=== PATIENT | male | born 1960 | race Caucasian/White ===

== ENCOUNTER 2019-09-28 15:49 | Emergency (ER) | payer OTHER ==
[2019-09-28] MEDS ORDERED: XYLOCAINE 1% HCL 20 ML MDV ONE ×2 (16:42→17:47)
--- NOTE | 2019-09-28 17:02 | ERPHSYRPT ---
- History of Present Illness Time Seen by Provider: 09/28/19 16:00 Source: patient Exam Limitations: no limitations Patient Subjective Stated Complaint: Pt was woring with a table saw and cut his left ring finger and the distal end of finger and cut proximally Triage Nursing Assessment: Pt came to the ER for a laceration to his left ring finger, Approx a 2 cm laceration with minimal bleeding, rates pain 5/10, vitals wnl, pulses normal, doesn't appear to be in any distress Physician History: Patient is a 59-year-old male who was working with a table saw suffered a laceration to the distal phalanx of his left ring finger. The laceration ran along the ulnar margin of the nail. He did have preserved motion and denies any numbness. Occurred just prior to his arrival. Occurred: just prior to arrival Method of Injury: incised Quality: throbbing Severity of Pain-Max: moderate Severity of Pain-Current: moderate Extremities Pain Location: 4th finger: left Modifying Factors: Improves With: nothing Allergies/Adverse Reactions: No Known Drug Allergies Allergy (Verified 09/28/19 15:55) Home Medications: Carbamazepine 200 mg [Tegretol 200 MG] 200 mg PO TID 09/28/19 [History] Gabapentin 300 mg PO TID 09/28/19 [History] Hx Tetanus, Diphtheria Vaccination/Date Given: No Hx Influenza Vaccination/Date Given: No Hx Pneumococcal Vaccination/Date Given: No Travel Risk - International Travel Have you traveled outside of the country in past 3 weeks: No Have you or anyone close to you been diagnosed with or: No Do your reside in a community with a known COVID-19 case?: Yes If Yes where:: [facility] - Coronavirus Screening Has patient experienced Coronavirus symptoms: No - Review of Systems Constitutional: No Fever, No Chills Eyes: No Symptoms Ears, Nose, & Throat: No Symptoms Respiratory: No Cough, No Dyspnea Cardiac: No Chest Pain, No Edema, No Syncope Abdominal/Gastrointestinal: No Abdominal Pain, No Nausea, No Vomiting, No Diarrhea Genitourinary Symptoms: No Dysuria Musculoskeletal: No Back Pain, No Neck Pain Skin: No Rash Neurological: No Dizziness, No Focal Weakness, No Sensory Changes Psychological: No Symptoms Endocrine: No Symptoms All Other Systems: Reviewed and Negative - Past Medical History Pertinent Past Medical History: Yes Neurological History: Peripheral Neuropathy ENT History: No Pertinent History Cardiac History: No Pertinent History Respiratory History: No Pertinent History Endocrine Medical History: No Pertinent History Musculoskeletal History: No Pertinent History GI Medical History: No Pertinent History History: No Pertinent History Psycho-Social History: No Pertinent History Male Reproductive Disorders: No Pertinent History - Past Surgical History Past Surgical History: Yes Neuro Surgical History: Neurological Surgery Cardiac: No Pertinent History Gastrointestinal: Appendectomy, Hernia Repair Genitourinary: No Pertinent History Musculoskeletal: No Pertinent History Male Surgical History: No Pertinent History Other Surgical History: cochlear implant, 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 - Social History Smoking Status: Current every day smoker How long have you smoked: YEARS Exposure to second hand smoke: Yes Drug Use: none Patient Lives Alone: No - Nursing Vital Signs Nursing Vital Signs: Initial Vital Signs Temperature 98.0 F 09/28/19 15:58 Pulse Rate 66 09/28/19 15:58 Blood Pressure 134/76 09/28/19 15:58 O2 Sat by Pulse Oximetry 98 09/28/19 15:58 Pain Scale Pain Intensity 0 - Physical Exam General Appearance: mild distress, alert Eyes, Ears, Nose, Throat Exam: moist mucous membranes Neck Exam: non-tender, supple Cardiovascular/Respiratory Exam: chest non-tender, normal breath sounds, regular rate/rhythm, no respiratory distress Abdominal Exam: non-tender, No guarding Back Exam: normal inspection, No vertebral tenderness Hand Exam: normal ROM, laceration (Fourth finger distal phalanx ulnar aspect a longitudinal laceration along the ulnar side of the nailbed 2.6 cm in length flap type laceration) Neuro/Tendon Exam: normal sensation, normal motor functions Mental Status Exam: alert, oriented x 3, cooperative Skin Exam: normal color, warm, dry SpO2: 98 Procedures - Laceration/Wound Repair Left Medial Distal Finger Wound Location: Left, hand (Ring finger distal phalanx ulnar aspect of the nailbed) Wound Length (cm): 2.6 Wound's Depth, Shape: linear, flap Wound Explored: no foreign body noted Irrigated: Yes Hibiclens Prep: Yes Anesthesia: 1% Lidocaine Volume Anesthetic (ccs): 10 Wound Debrided: minimal Wound Repaired With: sutures Suture Size/Type: 6-0, nylon Number of Sutures: 5 Layer Closure?: No Sterile Dressing Applied?: Yes Splint Applied?: No Sling Applied?: No - Course Nursing assessment & vital signs reviewed: Yes - Radiology Exams Left Hand X-ray Interpretation: Interpreted by me, Other (Right show a very tiny fracture of the distal tuft of the distal phalanx of the left middle finger) Ordered Tests: Active Orders 24 hr Category Date Time Status HAND (MINIMUM 3 VIEWS) Stat Exams 09/28/19 15:56 Taken Medication Summary Discontinued Medications Generic Name Dose Route Start Last Admin Trade Name Freq PRN Reason Stop Dose Admin Lidocaine HCl Confirm 09/28/19 16:42 Xylocaine 1% Hcl 20 Ml Mdv Administered 09/28/19 16:43 Dose 1 ml .ROUTE .[employer]-MED ONE - Progress Progress: improved - Departure Departure Disposition: Home Clinical Impression: Laceration of finger of left hand Condition: Stable Critical Care Time: No Referrals: MERE CRENSHAW [Primary Care Provider] - Instructions: Wound Care (DC), Laceration Repair With Stitches (DC) Prescriptions: Hydrocodone/APAP 5-325 Tab^^^ [[place] 5-325 Tablet^^^] 1 tab PO Q6HPRN PRN #10 tablet MDD 6 PRN Reason: Pain Cephalexin Mh 500 mg [Keflex 500 mg] 500 mg PO TID #30 capsule
[2019-09-28] MEDS ORDERED: Norco 10/325 MG Tablet PO ONE (17:07)
[2019-09-28] MEDS ORDERED: Norco 10/325 MG Tablet ONE (17:15)
[2019-09-28 17:40] VITALS: BP 118/76; PULSE 86; O2SAT 100
[2019-09-28] MEDS ORDERED: LIDOCAINE HCL 1% 50 MG/5 ML VL PF IJ STA (17:47)
--- NOTE | 2019-09-28 21:38 | XRAY ---
Indication: 4th finger laceration with saw. Comparison: None 3 view left hand demonstrates tiny laceration tip 4th finger with tiny punctate tuft fracture ulnar aspect. No other bony, articular, or soft tissue abnormalities.
== END 2019-09-28 17:41 | disposition home or self-care (01) ==
LOC: ED 15:49
DX: S61.215A Laceration without foreign body of left ring finger without damage to nail, initial encounter (principal); W29.8XXA Contact with other powered hand tools and household machinery, initial encounter; Y93.89 Activity, other specified; Y92.9 Unspecified place or not applicable
CPT/HCPCS: 12002; 73130; 96372; 99283; J2001; A9270-GY

== ENCOUNTER 2022-07-07 10:12 | Emergency (ER) | payer BC, OTHER ==
[2022-07-07] MEDS ORDERED: Zofran 4 MG/2 ML VIAL IV ONE (11:18)
[2022-07-07] MEDS ORDERED: MORPHINE SULFATE 2 MG INJ IV ONE (11:18)
[2022-07-07] MEDS ORDERED: PROTONIX 40 MG IV IV ONE ×2 (11:18→12:08)
--- NOTE | 2022-07-07 11:23 | ERPHSYRPT ---
- History of Present Illness Time Seen by Provider: 07/07/22 11:24 Source: patient Exam Limitations: no limitations Patient Subjective Stated Complaint: pt here for chronic nausea for almost a year now, he aslo states he has had pain to left chest for months now, was recen tly placed on prozac for depression, states he is under a lot of stress Triage Nursing Assessment: pt alert, resp easy, skin w/d/p. face mask in place, abd soft, no edema notd Physician History: Patient is a 62-year-old male presents to our emergency department for evaluation of left-sided chest pain. Chest pain has been ongoing for approximately 2 to 3 months. Patient also experiencing nausea which is worse after eating. Patient had upper GI performed at [facility] in April. However he does not know the results. Patient followed up with his primary care doctor regarding the nausea. He was advised that it was likely due to a gastritis. Patient states he is under significant stress as he is reportedly going through a divorce. Patient reports that his primary care physician felt that the gastritis is likely due to stress. Patient was prescribed Prozac for depression as a means to control his stress and anxiety. This would possibly thereby decrease the gastritis. No active chest pain. Pain localized no radiation. No associated trauma no fever no shortness of breath. Symptoms are moderate in intensity. Eating increases the nausea but does not affect the chest pain. Patient voices no other complaints or concerns at this time. Portions of this note were created with voice recognition technology. There may be grammatical, spelling, punctuation or sound alike errors Timing/Duration: other (Symptoms ongoing for several months. Patient states he cannot tolerate it any longer.) Severity: moderate Modifying Factors: Improves With: other (Eating causes nausea) Associated Symptoms: nausea, No vomiting Allergies/Adverse Reactions: No Known Drug Allergies Allergy (Verified 07/07/22 10:36) Home Medications: Carbamazepine 200 mg [Tegretol 200 MG] 200 mg PO TID 09/28/19 [History] Gabapentin 300 mg PO TID 09/28/19 [History] Fluoxetine HCl 20 mg [Prozac 20 MG] 20 mg PO DAILY 07/07/22 [History] Hx Tetanus, Diphtheria Vaccination/Date Given: No Hx Influenza Vaccination/Date Given: No Hx Pneumococcal Vaccination/Date Given: No Immunizations Up to Date: Yes Travel Risk - International Travel Have you traveled outside of the country in past 3 weeks: No - Coronavirus Screening Are you exhibiting any of the following symptoms?: No Close contact with a COVID-19 positive Pt in past 14-21 Days: No - Vaccine Status Have you recieved a Covid-19 vaccination: No - Review of Systems Constitutional: No Symptoms, No Fever, No Chills Eyes: No Symptoms Ears, Nose, & Throat: No Symptoms Respiratory: No Symptoms, No Cough, No Dyspnea Cardiac: No Symptoms, No Chest Pain, No Edema, No Syncope Abdominal/Gastrointestinal: No Symptoms, No Abdominal Pain, No Nausea, No Vomiting, No Diarrhea Genitourinary Symptoms: No Symptoms, No Dysuria Musculoskeletal: No Symptoms, No Back Pain, No Neck Pain Skin: No Symptoms, No Rash Neurological: No Symptoms, No Dizziness, No Focal Weakness, No Sensory Changes Psychological: No Symptoms Endocrine: No Symptoms Hematologic/Lymphatic: No Symptoms Immunological/Allergic: No Symptoms All Other Systems: Reviewed and Negative - Past Medical History Pertinent Past Medical History: Yes Neurological History: Peripheral Neuropathy ENT History: No Pertinent History Cardiac History: No Pertinent History Respiratory History: No Pertinent History Endocrine Medical History: No Pertinent History Musculoskeletal History: No Pertinent History GI Medical History: No Pertinent History History: No Pertinent History Psycho-Social History: No Pertinent History Male Reproductive Disorders: No Pertinent History - Past Surgical History Past Surgical History: Yes Neuro Surgical History: Neurological Surgery Cardiac: No Pertinent History Gastrointestinal: Appendectomy, Hernia Repair Genitourinary: No Pertinent History Musculoskeletal: No Pertinent History Male Surgical History: No Pertinent History Other Surgical History: cochlear implant, 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 - Social History Smoking Status: Current every day smoker How long have you smoked: YEARS Exposure to second hand smoke: Yes Drug Use: none Patient Lives Alone: No - Nursing Vital Signs Nursing Vital Signs: Initial Vital Signs Temperature 97.0 F 07/07/22 11:00 Pulse Rate 61 07/07/22 11:00 Respiratory Rate 18 07/07/22 11:00 Blood Pressure 175/109 07/07/22 11:00 Pain Scale Pain Intensity 5 - Physical Exam General Appearance: no apparent distress, alert Eye Exam: PERRL/EOMI, eyes nml inspection Ears, Nose, Throat Exam: normal ENT inspection, TMs normal, pharynx normal, moist mucous membranes Neck Exam: normal inspection, non-tender, supple, full range of motion Respiratory Exam: normal breath sounds, lungs clear, airway intact, No respiratory distress Cardiovascular Exam: regular rate/rhythm, normal heart sounds, normal peripheral pulses Gastrointestinal/Abdomen Exam: soft, normal bowel sounds, other (Right upper quadrant tenderness.), No tenderness, No mass Back Exam: normal inspection, normal range of motion, No CVA tenderness, No vertebral tenderness Extremity Exam: normal inspection, normal range of motion, pelvis stable Neurologic Exam: alert, oriented x 3, cooperative, normal mood/affect, nml cerebellar function, nml station & gait, sensation nml, No motor deficits Skin Exam: normal color, warm, dry, No rash Lymphatic Exam: No adenopathy SpO2 Interpretation: normal SpO2: 96 O2 Delivery: Room Air - Course Nursing assessment & vital signs reviewed: Yes EKG Interpreted by Me: RATE, Sinus Rhythm, NORMAL AXIS, NORMAL INTERVALS (Left ventricular hypertrophy) - CT Exams Abdomen/Pelvis CT Interpretation: Tele-radiologist Report (Lung nodule, 3 mm calcified granuloma, 3.3 cm left renal exophytic cyst. Aortoiliac calcification, lumbar spine arthritis. Remote L2 endplate fracture with 25% height loss) - Radiology Ultrasound Exam Gallbladder Ultrasound: tele radiology report (Multiple centimeter and subcentimeter gal lstones. Borderline gallbladder wall thickening at 2.6 mm. No pericholecystic fluid. CBD measures 5.6 mm) Ordered Tests: Active Orders 24 hr Category Date Time Status EKG-ER Only STAT Care 07/07/22 11:18 Active IV Insertion STAT Care 07/07/22 11:18 Active ABDOMEN AND PELVIS W/0 CONTRAS [CT] Stat Exams 07/07/22 11:18 Completed GALLBLADDER [US] Stat Exams 07/07/22 11:49 Completed CBC W DIFF Stat Lab 07/07/22 11:20 Completed CMP Stat Lab 07/07/22 11:20 Completed LIPASE Stat Lab 07/07/22 11:20 Completed Lactic Acid Stat Lab 07/07/22 11:18 Completed TROPONIN Q4H Lab 07/07/22 11:20 Completed TROPONIN Q4H Lab 07/07/22 15:10 Completed TROPONIN Q4H Lab 07/07/22 19:30 Ordered UA W/RFX UR CULTURE Stat Lab 07/07/22 13:49 Completed Medication Summary Generic Name Dose Route Start Last Admin Trade Name Freq PRN Reason Stop Dose Admin Sodium Chloride 1,000 mls @ 100 mls/hr 07/07/22 11:30 07/07/22 12:11 Sodium Chloride 0.9% 1000 Ml IV 08/06/22 11:29 100 mls/hr .Q10H ABDIAS Administration Discontinued Medications Generic Name Dose Route Start Last Admin Trade Name Maria Alejandra PRN Reason Stop Dose Admin Morphine Sulfate 2 mg 07/07/22 11:18 07/07/22 12:11 Morphine Sulfate 2 Mg/Ml Inj IV 07/07/22 11:19 2 mg STAT ONE Administration Morphine Sulfate Confirm 07/07/22 12:08 Morphine Sulfate 2 Mg/Ml Inj Administered 07/07/22 12:09 Dose 2 mg .ROUTE .STK-MED ONE Ondansetron HCl 4 mg 07/07/22 11:18 07/07/22 12:11 Ondansetron Hcl 4 Mg/2 Ml Vial IV 07/07/22 11:19 4 mg STAT ONE Administration Ondansetron HCl Confirm 07/07/22 12:08 Ondansetron Hcl 4 Mg/2 Ml Vial Administered 07/07/22 12:09 Dose 4 mg .ROUTE .STK-MED ONE Pantoprazole Sodium 40 mg 07/07/22 11:18 07/07/22 12:11 Pantoprazole 40 Mg Vial IV 07/07/22 11:19 40 mg STAT ONE Administration Pantoprazole Sodium Confirm 07/07/22 12:08 Pantoprazole 40 Mg Vial Administered 07/07/22 12:09 Dose 40 mg IV .STK-MED ONE Lab/Rad Data: Laboratory Result Diagrams 07/07/22 11:20 07/07/22 11:20 Laboratory Results 07/07/22 07/07/22 07/07/22 Range/Units 15:10 13:49 11:20 WBC (4.0-10.5) x10^3/uL RBC (4.1-5.6) x10^6/uL Hgb (12.5-18.0) g/dL Hct (42-50) % MCV (78-100) fL MCH (26-32) pg MCHC (32-36) g/dL RDW (11.5-14.0) % Plt Count (150-450) x10^3/uL MPV (7.5-11.0) fL Gran % (36.0-66.0) % Immature Gran % (Auto) (0.00-0.4) % Nucleat RBC Rel Count (0.00-0.1) % Eos # (Auto) (0-0.5) x10^3/uL Immature Gran # (Auto) (0.00-0.03) x10^3u/L Absolute Lymphs (auto) (1.0-4.6) x10^3/uL Absolute Monos (auto) (0.0-1.3) x10^3/uL Absolute Nucleated RBC (0.00-0.01) x10^3u/L Lymphocytes % (24.0-44.0) % Monocytes % (0.0-12.0) % Eosinophils % (0.00-5.0) % Basophils % (0.0-0.4) % Absolute Granulocytes (1.4-6.9) x10^3/uL Basophils # (0-0.4) x10^3/uL Sodium (137-145) mmol/L Potassium (3.5-5.1) mmol/L Chloride (98-107) mmol/L Carbon Dioxide (22-30) mmol/L Anion Gap (5-15) MEQ/L BUN (9-20) mg/dL Creatinine (0.66-1.25) mg/dL Estimated GFR ML/MIN Glucose (74-106) mg/dL Lactic Acid (0.4-2.0) Calcium (8.4-10.2) mg/dL Total Bilirubin (0.2-1.3) mg/dL AST (17-59) U/L ALT (0-50) U/L Alkaline Phosphatase (38-126) U/L Troponin I < 0.012 < 0.012 (0.000-0.034) ng/mL Serum Total Protein (6.3-8.2) g/dL Albumin (3.5-5.0) g/dL Lipase (23-300) U/L Urine Color Yellow (Yellow) Urine Appearance Clear (Clear) Urine pH 7.5 (4.6-8.0) Ur Specific [place] 1.015 (1.005-1.030) Urine Protein Negative (Negative) Urine Glucose (UA) Negative (Negative) mg/dL Urine Ketones Trace A (Negative) Urine Blood Negative (Negative) Urine Nitrite Negative (Negative) Urine Bilirubin Negative (Negative) Urine Urobilinogen 1.0 A (0.2) mg/dL Ur Leukocyte Esterase Negative (Negative) U Hyaline Cast (Auto) NONE SEEN (0-2) /LPF Urine Microscopic RBC 3-5 (0-5) /HPF Urine Microscopic WBC 0-2 (0-5) /HPF Ur Epithelial Cells None Seen (None Seen) /HPF Urine Bacteria None Seen (None Seen) /HPF Urine Culture Reflexed NO (NO) 07/07/22 07/07/22 07/07/22 Range/Units 11:20 11:20 11:18 WBC 8.6 (4.0-10.5) x10^3/uL RBC 4.83 (4.1-5.6) x10^6/uL Hgb 14.7 (12.5-18.0) g/dL Hct 40.7 L (42-50) % MCV 84.3 (78-100) fL MCH 30.4 (26-32) pg MCHC 36.1 H (32-36) g/dL RDW 11.8 (11.5-14.0) % Plt Count 236 (150-450) x10^3/uL MPV 8.7 (7.5-11.0) fL Gran % 80.4 H (36.0-66.0) % Immature Gran % (Auto) 0.3 (0.00-0.4) % Nucleat RBC Rel Count 0.0 (0.00-0.1) % Eos # (Auto) 0.07 (0-0.5) x10^3/uL Immature Gran # (Auto) 0.03 (0.00-0.03) x10^3u/L Absolute Lymphs (auto) 1.07 (1.0-4.6) x10^3/uL Absolute Monos (auto) 0.50 (0.0-1.3) x10^3/uL Absolute Nucleated RBC 0.00 (0.00-0.01) x10^3u/L Lymphocytes % 12.4 L (24.0-44.0) % Monocytes % 5.8 (0.0-12.0) % Eosinophils % 0.8 (0.00-5.0) % Basophils % 0.3 (0.0-0.4) % Absolute Granulocytes 6.90 (1.4-6.9) x10^3/uL Basophils # 0.03 (0-0.4) x10^3/uL Sodium 127 L (137-145) mmol/L Potassium 4.1 (3.5-5.1) mmol/L Chloride 95 L (98-107) mmol/L Carbon Dioxide 24 (22-30) mmol/L Anion Gap 12.0 (5-15) MEQ/L BUN 5 L (9-20) mg/dL Creatinine 0.66 (0.66-1.25) mg/dL Estimated GFR > 60.0 ML/MIN Glucose 107 H (74-106) mg/dL Lactic Acid 0.8 (0.4-2.0) Calcium 8.7 (8.4-10.2) mg/dL Total Bilirubin 0.50 (0.2-1.3) mg/dL AST 31 (17-59) U/L ALT 15 (0-50) U/L Alkaline Phosphatase 84 (38-126) U/L Troponin I (0.000-0.034) ng/mL Serum Total Protein 7.3 (6.3-8.2) g/dL Albumin 4.4 (3.5-5.0) g/dL Lipase 64 (23-300) U/L Urine Color (Yellow) Urine Appearance (Clear) Urine pH (4.6-8.0) Ur Specific [place] (1.005-1.030) Urine Protein (Negative) Urine Glucose (UA) (Negative) mg/dL Urine Ketones (Negative) Urine Blood (Negative) Urine Nitrite (Negative) Urine Bilirubin (Negative) Urine Urobilinogen (0.2) mg/dL Ur Leukocyte Esterase (Negative) U Hyaline Cast (Auto) (0-2) /LPF Urine Microscopic RBC (0-5) /HPF Urine Microscopic WBC (0-5) /HPF Ur Epithelial Cells (None Seen) /HPF Urine Bacteria (None Seen) /HPF Urine Culture Reflexed (NO) - Progress Progress: improved Progress Note: Outside hospital reports of upper GI and colonoscopy were obtained from [facility]. I personally reviewed the reports. The purpose of obtaining the reports was to find an etiology for patient's ongoing and progressive nausea. Report reveals inactive gastritis. Patient had polyps observed on his col onoscopy which were sampled. I do not have reports of final pathology report. 07/07/22 14:34 Patient reassessed. He is well. Patient has no complaints. No chest pain or shortness of breath. Slight nausea however this has been ongoing for several months. Will discharge patient home patient requesting discharge. He states he will follow-up at the [facility]. Patient's heart score was calculated. Heart score is 2 which is low risk for major adverse coronary event. I discussed this case with Dr. Green who agrees with disposition. Patient 62-year-old male presents to our ED with a 1 year history of nausea and a 3-month history of left-sided chest pain. Patient's presenting symptoms are c hronic. Complexity of complaint is moderate. No significant comorbidities to contribute to patient's symptomology. Patient has no history of hypertension hyperlipidemia diabetes. However patient is a smoker. No significant family history of VT or stroke. Testing ordered including EKG. Dr. Graham personally reviewed the EKG. CT abdomen pelvis which shows no acute findings. Right upper quadrant ultrasound. Findings include cholelithiasis. No cholecystitis. CBC CMP lipase lactic acid troponin urinalysis. Results of testing was used for medical decision making. . Patient received morphine for pain. Patient received pantoprazole for pain as well. Zofran for nausea and sodium chloride normal saline administered due to decreased p.o. Patient feels much better. No active pain. Pay states he is ready for discharge. He will follow-up with the [facility] tomorrow morning. Patient v oices no other complaints or concerns at this time. Level VM service provided was moderate. Complexity of problems addressed moderate. Complexity of data reviewed and analyzed is moderate. Risk of complication and/or risk of morbidity/mortality of patient management was moderate. No critical care time. Patient served as an independent historian. Time spent for discharge approximately 15 minutes. Portions of this note were created with voice recognition technology. There may be grammatical, spelling, punctuation or sound alike errors 07/07/22 16:30 07/07/22 16:40 Counseled pt/family regarding: lab results, diagnosis, rad results - Departure Departure Disposition: Home Clinical Impression: Nausea, Cholelithiasis, Hyponatremia, Lung nodule, Exophytic renal cyst, Aortoiliac calcification, Arthritis of lumbar spine, Remote L2 endplate fracture Condition: Stable Critical Care Time: No Referrals: MERE CRENSHAW [ACTIVE STAFF] - Follow up/PCP as directed Instructions: Nausea and Vomiting, Adult (DC) Additional Instructions: You will require follow-up for a lung nodule incidentally observed on today's CAT scan Discharge/Care Plan MAUROADIS was seen on 07/07/22 in the Emergency Room. The patient was counseled regarding Diagnosis,Lab results, Imaging studies, need for follow up and when to return to the Emergency Room. Prescriptions given: Discharge Note I have spoken with the patient and/or caregivers. I have explained the patient's condition, diagnosis and treatment plan based on the information available to me at this time. I have answered the patient's and/or caregiver's questions and addressed any concerns. The patient and/or caregivers have as good understanding of the patient's diagnosis, condition and treatment plan as can be expected at this point. The vital signs have been stable. The patient's condition is stable and appropriate for discharge from the emergency department. The patient will pursue further outpatient evaluation with the primary care physician or other designated or consulting physician as outlined in the discharge instructions. The patient and/or caregivers are agreeable to this plan of care and follow-up instructions have been explained in detail. The patient and/or caregivers have received these instruction. The patient/and or caregivers are aware that any significant change in condition or worsening of symptoms should prompt an immediate return to this or the closest emergency department or call 911.
[2022-07-07] MEDS ORDERED: Sodium Chloride 0.9% 1000 ML 1,000 ML IV SCH (11:30)
[2022-07-07 11:31] LABS: BASOPHIL % 0.3 % (0.0-0.4); Basophil (Absolute #) 0.03 x10^3/uL (0-0.4); Eosinophil % 0.8 % (0.00-5.0); Eosinophil (Absolute #) 0.07 x10^3/uL (0-0.5); Hematocrit 40.7 % (42-50); Hemoglobin 14.7 g/dL (12.5-18.0); IMMATURE GRAN # 0.03 x10^3u/L (0.00-0.03); IMMATURE GRAN % 0.3 % (0.00-0.4); Lymphocyte (Absolute #) 1.07 x10^3/uL (1.0-4.6); Lymphocytes % 12.4 % (24.0-44.0); Mean Cell Volume 84.3 fL (78-100); Mean Corpuscular Hemoglobin 30.4 pg (26-32); Mean Corpuscular Hgb Concent. 36.1 g/dL (32-36); Mean Platelet Volume 8.7 fL (7.5-11.0); Monocytes % 5.8 % (0.0-12.0); Neutrophil % 80.4 % (36.0-66.0); Platelet Count 236 x10^3/uL (150-450); Red Blood Count 4.83 x10^6/uL (4.1-5.6); Red Cell Distribution Width 11.8 % (11.5-14.0); White Blood Count 8.6 x10^3/uL (4.0-10.5)
[2022-07-07 11:42] LABS: ALBUMIN 4.4 g/dL (3.5-5.0); ALKALINE PHOSPHATASE 84 U/L (38-126); BLOOD UREA NITROGEN 5 mg/dL (9-20); CHLORIDE 95 mmol/L (98-107); Calcium 8.7 mg/dL (8.4-10.2); Carbon Dioxide 24 mmol/L (22-30); Creatinine 1 0.66 mg/dL (0.66-1.25); EST GLOMERULAR FILTRATION RATE > 60.0 ML/MIN; Glucose 107 mg/dL (74-106); LIPASE 64 U/L (23-300); Potassium 4.1 mmol/L (3.5-5.1); SGOT/AST 31 U/L (17-59); SGPT/ALT 15 U/L (0-50); SODIUM 127 mmol/L (137-145); Total Protein 7.3 g/dL (6.3-8.2)
--- NOTE | 2022-07-07 12:06 | XRAY ---
Indication: Nausea 3 weeks. Left abdomen pain and diarrhea. Multiple contiguous axial images obtained through the abdomen and pelvis without contrast. Comparison: None Lung bases demonstrates 6 mm left costophrenic angle noncalcified nodule and 3 mm calcified granuloma. Heart not enlarged. Noncontrasted stomach and bowel loops appear nonobstructed. Appendix not visualized. 3.3 cm left renal exophytic cyst and tiny hepatic/splenic calcified granulomas. No free fluid/air. Remaining liver, gallbladder, pancreas, spleen, adrenal glands, kidneys, ureters, and bladder are unremarkable for noncontrast exam. Mild scattered aortoiliac calcifications without AAA. Osseous structures intact with mild/moderate degenerative changes throughout the thoracolumbar spine, remote L2 inferior endplate fracture with less than 25% height loss, and mild double curvature scoliosis. No ventral or inguinal hernias. Impression: 1. Left costophrenic angle calcified/noncalcified micronodules presumed granulomatous. 2. Left renal cyst, arteriosclerotic disease, chronic bony findings, and old granulomatous disease. 3. Remaining CT abdomen/pelvis without contrast exam is negative.
[2022-07-07] MEDS ORDERED: MORPHINE SULFATE 2 MG INJ ONE (12:08)
[2022-07-07] MEDS ORDERED: Sodium Chloride 0.9% 1000 ML 1,000 ML ONE (12:08)
[2022-07-07] MEDS ORDERED: Zofran 4 MG/2 ML VIAL ONE (12:08)
--- NOTE | 2022-07-07 12:56 | XRAY ---
Indication: Pain and nausea. Two-dimensional gallbladder sonogram performed. Comparison: None Pancreas not well-seen due to overlying bowel gas. Gallbladder demonstrates multiple centimeter and subcentimeter stones. Borderline gallbladder wall thickening measuring 2.6 mm. No pericholecystic fluid. Common bile duct measures 5.6 mm. No intrahepatic biliary distention. Remaining visualized liver and right kidney are sonographically unremarkable. Right kidney measures 11.7 cm in length. Impression: 1. Nonvisualization pancreas. 2. Cholelithiasis without acute cholecystitis or biliary distention.
[2022-07-07 14:14] LABS: Appearance Clear (Clear); Bacteria None Seen /HPF (None Seen); Bilirubin Negative (Negative); Blood Negative (Negative); Epithelial Cells None Seen /HPF (None Seen); Glucose, Urine Negative (Negative); Hyaline Casts NONE SEEN /LPF (0-2); Ketones Trace (Negative); Leukocyte Esterase Negative (Negative); Nitrite Negative (Negative); Ph 7.5 (4.6-8.0); Protein,Urine Dip Negative (Negative); Specific Gravity 1.015 (1.005-1.030); WBC 0-2 /HPF (0-5)
[2022-07-07 14:23] LABS: ADD URINE CULTURE? NO (NO)
[2022-07-07 16:41] VITALS: BP 178/104; PULSE 68
[2022-07-07 16:44] VITALS: O2SAT 96
== END 2022-07-07 16:45 | disposition home or self-care (01) ==
LOC: ED 10:12
DX: K80.20 Calculus of gallbladder without cholecystitis without obstruction (principal); R11.0 Nausea; E87.1 Hypo-osmolality and hyponatremia; R91.1 Solitary pulmonary nodule; N28.1 Cyst of kidney, acquired; I70.0 Atherosclerosis of aorta; M47.816 Spondylosis without myelopathy or radiculopathy, lumbar region; Z87.311 Personal history of (healed) other pathological fracture; R07.9 Chest pain, unspecified; Z79.899 Other long term (current) drug therapy; Z28.310 Unvaccinated for COVID-19; Z72.0 Tobacco use
CPT/HCPCS: 36000; 36415; 74176; 76705; 80053; 81001; 83605; 83690; 84484; 85025; 93005; 96374; 96375; 99284; J2270; J2405

== ENCOUNTER 2022-07-08 09:24 | Emergency (ER) | payer OTHER ==
--- NOTE | 2022-07-08 10:15 | ERPHSYRPT ---
- History of Present Illness Time Seen by Provider: 07/08/22 10:14 Historian: patient, family Exam Limitations: no limitations Patient Subjective Stated Complaint: Vomiting Triage Nursing Assessment: Patient ambulated back to ED and transferred self to bed. Patient A+O X3. Patient's skin pink, warm and dry. Patient complains of LUQ pain 4/10 with nausea and vomiting. Patient was seen in ER yesterday. Patient states he is unable to eat anything due to the nausea. Physician History: This is a 62-year-old white male AL system patient who was here less than 24 hours ago in our emergency department. He underwent a full work-up looking at his heart and his abdomen and pelvis as well as his right upper quadrant/gallbladder. He was found to have evidence of chronic cholecystitis and cholelithiasis. Patient returns emergency department because he can eat he is having some nausea and vomiting. Symptoms have been present and intermittent for over a year but is now getting worse and more constant. There is been more intensity of his symptoms. He has had an appendectomy in the past. Patient is a daily smoker of cigarettes. A CAT scan of the abdomen pelvis was performed on 07/07/2022 and there is no acute findings in the abdomen or pelvis. An ultrasound was performed which showed significant number of centimeter and subcentimeter gallstones with borderline gallbladder wall thickening but no pericholecystic fluid. Patient's twelve-lead EKG was reviewed by me as was the above reports of the radiographic studies. Laboratory results were also reviewed by me and they are within normal limits. An outside upper GI report was reviewed by me. Patient's pain is primarily left upper quadrant and epigastric region. He does not have chest pain or shortness of breath. Timing/Duration: intermittent, worse, other (Chronic) Activities at Onset: none Quality: aching Abdominal Pain Onset Location: LUQ, epigastric Severity of Pain-Max: mild Severity of Pain-Current: mild Modifying Factors: Improves With: eating (Worsens symptoms), vomiting Associated Symptoms: loss of appetite, nausea, vomiting Allergies/Adverse Reactions: No Known Drug Allergies Allergy (Verified 07/08/22 09:46) Home Medications: Carbamazepine 200 mg [Tegretol 200 MG] 200 mg PO TID 09/28/19 [History] Gabapentin 300 mg PO TID 05/01/20 [History] Fluoxetine HCl 20 mg [Prozac 20 MG] 20 mg PO DAILY 07/07/22 [History] Hx Tetanus, Diphtheria Vaccination/Date Given: No Hx Influenza Vaccination/Date Given: No Hx Pneumococcal Vaccination/Date Given: No Immunizations Up to Date: Yes Travel Risk - International Travel Have you traveled outside of the country in past 3 weeks: No - Coronavirus Screening Are you exhibiting any of the following symptoms?: No Close contact with a COVID-19 positive Pt in past 14-21 Days: No - Vaccine Status Have you recieved a Covid-19 vaccination: No - Review of Systems Constitutional: No Symptoms Eyes: No Symptoms Ears, Nose, & Throat: No Symptoms Respiratory: No Symptoms Cardiac: No Symptoms Abdominal/Gastrointestinal: Abdominal Pain (Epigastric and left upper quadrant), Nausea, Vomiting, Appetite Changes Genitourinary Symptoms: No Symptoms Musculoskeletal: No Symptoms Skin: No Symptoms Neurological: No Symptoms Psychological: No Symptoms Endocrine: No Symptoms Hematologic/Lymphatic: No Symptoms Immunological/Allergic: No Symptoms All Other Systems: Reviewed and Negative - Past Medical History Pertinent Past Medical History: Yes Neurological History: Peripheral Neuropathy ENT History: No Pertinent History Cardiac History: No Pertinent History Respiratory History: No Pertinent History Endocrine Medical History: No Pertinent History Musculoskeletal History: No Pertinent History GI Medical History: No Pertinent History History: No Pertinent History Psycho-Social History: No Pertinent History Male Reproductive Disorders: No Pertinent History - Past Surgical History Past Surgical History: Yes Neuro Surgical History: Neurological Surgery Cardiac: No Pertinent History Gastrointestinal: Appendectomy, Hernia Repair Genitourinary: No Pertinent History Musculoskeletal: No Pertinent History Male Surgical History: No Pertinent History Other Surgical History: cochlear implant, 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 - Social History Smoking Status: Current every day smoker How long have you smoked: YEARS Exposure to second hand smoke: Yes Drug Use: none Patient Lives Alone: No - Nursing Vital Signs Nursing Vital Signs: Initial Vital Signs Temperature 97.5 F 07/08/22 09:50 Pulse Rate 63 07/08/22 09:50 Respiratory Rate 18 07/08/22 09:50 Blood Pressure 163/101 07/08/22 09:50 O2 Sat by Pulse Oximetry 98 07/08/22 09:50 Pain Scale Pain Intensity 4 - Physical Exam SpO2: 98 - Course Nursing assessment & vital signs reviewed: Yes Ordered Tests: Active Orders 24 hr Category Date Time Status IV Insertion STAT Care 07/08/22 10:28 Active Medication Summary Discontinued Medications Generic Name Dose Route Start Last Admin Trade Name Maria Alejandra PRN Reason Stop Dose Admin Hydromorphone HCl 1 mg 07/08/22 10:28 07/08/22 10:57 Hydromorphone 1 Mg/1ml Inj 1 Mg/Ml Syringe IV 07/08/22 10:29 1 mg STAT ONE Administration Hydromorphone HCl Confirm 07/08/22 10:51 Hydromorphone 1 Mg/1ml Inj 1 Mg/Ml Syringe Administered 07/08/22 10:52 Dose 1 mg .ROUTE .STK-MED ONE Sodium Chloride 1,000 mls @ 999 mls/hr 07/08/22 10:28 07/08/22 12:27 Sodium Chloride 0.9% 1000 Ml IV 07/08/22 11:28 Infused .Q1H1M STA Infusion Sodium Chloride Confirm 07/08/22 10:51 Sodium Chloride 0.9% 1000 Ml Administered 07/08/22 10:52 Dose 1,000 mls @ ud .ROUTE .STK-MED ONE Ondansetron HCl 4 mg 07/08/22 10:28 07/08/22 10:56 Ondansetron Hcl 4 Mg/2 Ml Vial IV 07/08/22 10:29 4 mg STAT ONE Administration Ondansetron HCl Confirm 07/08/22 10:51 Ondansetron Hcl 4 Mg/2 Ml Vial Administered 07/08/22 10:52 Dose 4 mg .ROUTE .STK-MED ONE Lab/Rad Data: Laboratory Results 07/08/22 Range/Units 12:05 Influenza Type A Ag NEGATIVE (NEGATIVE) Influenza Type B Ag NEGATIVE (NEGATIVE) RSV (PCR) NEGATIVE (Negative) SARS-CoV-2 (PCR) NEGATIVE (NEGATIVE) - Progress Progress Note: 07/08/22 10:26 Medical decision making: This patient's medical issue is of low to moderate complexity. Based on the patient's history and the additional history that spouse provided as well as findings on the physical examination, the patient's work-up from less than 24 hours ago was reviewed in full including old upper GI study results, laboratory results, radiographic studies including CAT scan of the abdomen pelvis and ultrasound of the gallbladder. I also reviewed the twelve-lead EKG results. Based on the above, I do not feel the patient needs a repeat of his work-up. I think it is important to provide him with intravenous fluids and Zofran. We will contact the [facility] to see what they will allow us to do as far as discharge planning. 07/08/22 13:39 Medical decision making: This patient has symptomatic cholelithiasis. He is medically stable. The [facility] has allowed us to perform the procedure here at this facility. I reviewed this history, physical exam findings and results of the laboratory and radiographic work-up that the patient had as well as a discussion of the EKG that was performed on 07/07/[address] Clement states that he does not want to except the patient at this moment in time. He would be agreeable to admit the patient as long as the general surgeon is aware that this patient is here to undergo consultation and surgical procedure prior to the weekend. We are awaiting the callback from Dr. Fred Luna the general surgeon on-call for hospital at this time. 07/08/22 14:49 Medical decision making: This patient is medically stable to be admitted or transferred to a facility in preparation for a cholecystectomy. The patient's symptoms are worsening to the point where he is having difficulty eating or even drinking fluids because of the pain and the nausea and occasional vomiting that is causing. Our hospitalist, Dr. Clement does not want to admit the patient unless general surgery is available to perform a cholecystectomy after admission within the next day or 2. However, I did speak with our surgeon on-call, Dr. Fred Luna. He is refusing consultation on AL patients because the AL system does not pay their bills. The patient is not in an emergent situation at this time but more of an urgent. The AL told us earlier that they do have a bed for him and therefore we will call the AL in [place]. The patient is stable enough to be transferred by private vehicle. I discussed these issues with the patient and the patient's spouse. Discussed with DrShruthi: Kapil Cadena (Spoke with Dr. Cedillo while Dr. Fred Luna, who is on-call, is in surgery) Counseled pt/family regarding: lab results, diagnosis, rad results - Departure Departure Disposition: Home Clinical Impression: Symptomatic cholelithiasis, Nausea and vomiting Condition: Stable Critical Care Time: No Referrals: [facility]OSPITAL,'S [Primary Care Provider] - Follow up/PCP as directed Additional Instructions: Go to the [facility] for further instructions, evaluation and management. Do not stop to get any food or drink. If the AL system does not admit you today, avoid fatty greasy spicy foods and only consume clear liquids over the weekend Prescriptions: Ondansetron ODT 4 MG [Zofran Odt 4 mg] 4 mg PO Q6H PRN PRN #10 tablet PRN Reason: Vomiting
[2022-07-08] MEDS ORDERED: Hydromorphone 1 mg/ml Injection IV ONE (10:28)
[2022-07-08] MEDS ORDERED: Sodium Chloride 0.9% 1000 ML 1,000 ML IV STA (10:28)
[2022-07-08] MEDS ORDERED: Zofran 4 MG/2 ML VIAL IV ONE (10:28)
[2022-07-08] MEDS ORDERED: Hydromorphone 1 mg/ml Injection ONE (10:51)
[2022-07-08] MEDS ORDERED: Zofran 4 MG/2 ML VIAL ONE (10:51)
[2022-07-08] MEDS ORDERED: Sodium Chloride 0.9% 1000 ML 1,000 ML ONE (10:51)
[2022-07-08 12:51] LABS: INFLUENZA A NEGATIVE (NEGATIVE); INFLUENZA B NEGATIVE (NEGATIVE); RESPIRATORY SYNCTIAL VIRUS NEGATIVE (Negative); SARS-CoV-2 Xpert Express NEGATIVE (NEGATIVE)
[2022-07-08 14:18] VITALS: BP 153/90; PULSE 60
[2022-07-08 14:53] VITALS: O2SAT 98
== END 2022-07-08 16:16 | disposition home or self-care (01) ==
LOC: ED 09:24
DX: K80.20 Calculus of gallbladder without cholecystitis without obstruction (principal); R11.2 Nausea with vomiting, unspecified; R10.12 Left upper quadrant pain; R10.13 Epigastric pain; Z79.899 Other long term (current) drug therapy; Z28.310 Unvaccinated for COVID-19; Z72.0 Tobacco use
CPT/HCPCS: 0241U; 36000; 96360; 96374; 96375; 99284; J1170; J2405

== ENCOUNTER 2022-11-28 07:35 | Emergency (ER) | payer OTHER ==
--- NOTE | 2022-11-28 07:51 | ERPHSYRPT ---
- History of Present Illness Time Seen by Provider: 11/28/22 07:50 Source: patient Exam Limitations: no limitations Physician History: 62-year-old male presents emergency room after redness and swelling of his right upper extremity following a insect bite that he noticed yesterday around 3:00 in the afternoon. The bite is on the medial aspect of the right dorsal hand with surrounding swelling that extends to the mid forearm. Patient denies any pain, numbness, tingling or drainage from the bite. Patient has not had any fevers at home. His has been having him elevate the arm and place ice over it to help reduce the swelling. No history of similar symptoms. Patient denies any history of MRSA or VRE. Timing/Duration: yesterday (1500) Location: hands (right) Possible Causes: insect bite Modifying Factors: Improves With: other (ice reduces swelling) Associated Symptoms: denies symptoms Allergies/Adverse Reactions: No Known Drug Allergies Allergy (Verified 11/28/22 07:43) Home Medications: Carbamazepine 200 mg [Tegretol 200 MG] 200 mg PO TID 09/28/19 [History] Gabapentin 300 mg PO TID 09/28/19 [History] Hx Tetanus, Diphtheria Vaccination/Date Given: No Hx Influenza Vaccination/Date Given: No Hx Pneumococcal Vaccination/Date Given: No Travel Risk - Vaccine Status Have you recieved a Covid-19 vaccination: No - Review of Systems Constitutional: No Symptoms Eyes: No Symptoms Ears, Nose, & Throat: No Symptoms Respiratory: No Symptoms Cardiac: No Symptoms Abdominal/Gastrointestinal: No Symptoms Musculoskeletal: No Symptoms Skin: Cellulitis (right upper extremity), Other (swelling right upper extremity) Neurological: No Symptoms Psychological: No Symptoms Endocrine: No Symptoms Hematologic/Lymphatic: No Symptoms Immunological/Allergic: No Symptoms All Other Systems: Reviewed and Negative - Past Medical History Pertinent Past Medical History: Yes Neurological History: Peripheral Neuropathy ENT History: No Pertinent History Cardiac History: No Pertinent History Respiratory History: No Pertinent History Endocrine Medical History: No Pertinent History Musculoskeletal History: No Pertinent History GI Medical History: No Pertinent History History: No Pertinent History Psycho-Social History: No Pertinent History Male Reproductive Disorders: No Pertinent History - Past Surgical History Past Surgical History: Yes Neuro Surgical History: Neurological Surgery Cardiac: No Pertinent History Gastrointestinal: Appendectomy, Hernia Repair Genitourinary: No Pertinent History Musculoskeletal: No Pertinent History Male Surgical History: No Pertinent History Other Surgical History: cochlear implant, 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 - Social History Smoking Status: Current every day smoker How long have you smoked: YEARS Exposure to second hand smoke: Yes Drug Use: none Patient Lives Alone: No - Nursing Vital Signs Nursing Vital Signs: Initial Vital Signs Pulse Rate 65 11/28/22 07:35 Respiratory Rate 18 11/28/22 07:35 Blood Pressure 178/93 11/28/22 07:35 O2 Sat by Pulse Oximetry 99 11/28/22 07:35 Pain Scale Pain Intensity 4 - Physical Exam General Appearance: no apparent distress Respiratory Exam: airway intact, No respiratory distress, No wheezing Cardiovascular Exam: regular rate/rhythm, capillary refill <2 sec, other (2+ radial pulse b/l) Extremity Exam: swelling (dorsal hand on right w/ extension to mid forearm), other (insect bite noted on medial aspect of right dorsal hand), No tenderness Neurologic Exam: alert, oriented x 3, cooperative, other (sensation intact to light touch, ulnar/median/radial nerves tested and wnl) Skin Exam: warm, other (mild erythema surrounding the bite) SpO2 Interpretation: normal O2 Delivery: Room Air - Course Nursing assessment & vital signs reviewed: Yes Ordered Tests: Medication Summary Discontinued Medications Generic Name Dose Route Start Last Admin Trade Name Maria Alejandra PRN Reason Stop Dose Admin Trimethoprim/Sulfamethoxazole 1 tab 11/28/22 08:03 11/28/22 08:06 Smz/Tmp Ds Tablet 1 Tablet PO 11/28/22 08:04 1 tab STAT STA Administration Trimethoprim/Sulfamethoxazole Confirm 11/28/22 08:06 Smz/Tmp Ds Tablet 1 Tablet Administered 11/28/22 08:07 Dose 1 tab PO .STK-MED ONE - Progress Progress: unchanged Progress Note: No concerns for compartment syndrome secondary to the right upper extremity swelling. Also no concerns for right upper extremity DVT at this time. I discussed return precautions with patient and his including increasing pain, numbness or tingling. They voiced understanding. I gave patient 1 dose of Bactrim and will send him home with a 10-day prescription to treat the cellulitis. I did place a compression sleeve on his right upper extremity to help with the swelling. I encouraged the patient to continue to ice, elevate and use a compression sleeve at this time. If any of the above symptoms including pain, numbness or tingling occur advised him to remove the compression sleeve at that time and proceed to the emergency room. 11/28/22 08:19 Counseled pt/family regarding: diagnosis, need for follow-up Medical Desision Making - Diagnostic Testing Diagnostic test were ordered, analyzed, and reviewed by me: No - Risk of complications The pt has a mod risk of morbidity or mortality based on: Need for prescription drug management - Departure Departure Disposition: Home Clinical Impression: Right arm cellulitis, Swelling of right upper extremity Condition: Good Critical Care Time: No Referrals: [facility]OSPITAL[facility] [Primary Care Provider] - Follow up/PCP as directed Instructions: Insect Bites and Stings (DC) Prescriptions: Sulfamethoxazole/Trimethoprim [Bactrim Ds Tablet] 1 each PO BID 10 Days #20 tablet
[2022-11-28] MEDS ORDERED: BACTRIM DS TABLET PO STA (08:03)
[2022-11-28 08:04] VITALS: BP 178/93; PULSE 65; O2SAT 99
[2022-11-28] MEDS ORDERED: BACTRIM DS TABLET PO ONE (08:06)
== END 2022-11-28 08:20 | disposition home or self-care (01) ==
LOC: ED 07:35
DX: S60.561A Insect bite (nonvenomous) of right hand, initial encounter (principal); L03.113 Cellulitis of right upper limb; Z79.899 Other long term (current) drug therapy; Z28.310 Unvaccinated for COVID-19; Z72.0 Tobacco use
CPT/HCPCS: 99281; A9270-GY

== ENCOUNTER 2023-12-05 09:23 | Emergency (ER) | payer OTHER ==
--- NOTE | 2023-12-05 09:32 | ERPHSYRPT ---
- History of Present Illness Time Seen by Provider: 12/05/23 09:32 Source: patient, family Exam Limitations: no limitations Physician History: This is a 63-year-old white male patient who receives his medical care at [facility] and presents with right upper extremity and right lower extremity numbness without affecting his ability to ambulate or use those extremities. The patient states that the numbness has not worsened but it is persistent. When he called the [facility] today, they told him to go to the nearest emergency department. Patient also states that approximately 1 week ago he had some intermittent double vision which has resolved completely. Patient has a history of peripheral neuropathy and he takes gabapentin and Tegretol for nerve pain. He does not have a history of hypertension although he is hypertensive today on his initial blood pressure reading. Patient denies chest pain. Patient denies shortness of breath. Patient is currently on amoxicillin to treat dental infection. He has appointment to see a dentist on December 08, 2023. 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 He states he cannot have MRIs of his brain. NIHSS score of 1 Timing/Duration: week(s) (3 weeks) Severity: mild Modifying Factors: Improves With: nothing Associated Symptoms: denies symptoms Allergies/Adverse Reactions: No Known Drug Allergies Allergy (Verified 12/05/23 09:35) Home Medications: Carbamazepine 200 mg [Tegretol 200 MG] 200 mg PO TID 09/28/19 [History] Gabapentin 300 mg PO TID 09/28/19 [History] Amoxicillin 500 mg PO TID 12/05/23 [History] Hx Tetanus, Diphtheria Vaccination/Date Given: No Hx Influenza Vaccination/Date Given: No Hx Pneumococcal Vaccination/Date Given: No Travel Risk - International Travel Have you traveled outside of the country in past 3 weeks: No - Emerging Infectious Disease Are you exhibiting symptoms associated with any current EIDs: No - Vaccine Status Hx Covid Vaccintation/Booster/Date Given: No - Review of Systems Constitutional: No Symptoms Eyes: No Symptoms Ears, Nose, & Throat: No Symptoms Respiratory: No Symptoms Cardiac: No Symptoms Abdominal/Gastrointestinal: No Symptoms Genitourinary Symptoms: No Symptoms Musculoskeletal: No Symptoms Skin: No Symptoms Neurological: Sensory Changes (Right upper and right lower extremity) Psychological: No Symptoms Endocrine: No Symptoms Hematologic/Lymphatic: No Symptoms Immunological/Allergic: No Symptoms All Other Systems: Reviewed and Negative - Past Medical History Pertinent Past Medical History: Yes Neurological History: Peripheral Neuropathy ENT History: No Pertinent History Cardiac History: No Pertinent History Respiratory History: No Pertinent History Endocrine Medical History: No Pertinent History Musculoskeletal History: No Pertinent History GI Medical History: No Pertinent History History: No Pertinent History Psycho-Social History: No Pertinent History Male Reproductive Disorders: No Pertinent History - Past Surgical History Past Surgical History: Yes Neuro Surgical History: Neurological Surgery Cardiac: No Pertinent History Respiratory: No Pertinent History Gastrointestinal: Appendectomy, Hernia Repair Genitourinary: No Pertinent History Musculoskeletal: No Pertinent History Male Surgical History: No Pertinent History Other Surgical History: cochlear implant, 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 - Social History Smoking Status: Current every day smoker How long have you smoked: YEARS Exposure to second hand smoke: Yes Drug Use: none Patient Lives Alone: No - Nursing Vital Signs Nursing Vital Signs: Initial Vital Signs Temperature 97.5 F 12/05/23 09:24 Pulse Rate 67 12/05/23 09:24 Respiratory Rate 21 12/05/23 09:24 Blood Pressure 191/122 12/05/23 09:24 O2 Sat by Pulse Oximetry 99 12/05/23 09:24 Pain Scale Pain Intensity 0 - Physical Exam General Appearance: no apparent distress, alert, anxiety Eye Exam: PERRL/EOMI, eyes nml inspection Ears, Nose, Throat Exam: moist mucous membranes, other (Generalized poor dentition) Neck Exam: normal inspection, non-tender, supple, full range of motion Respiratory Exam: normal breath sounds, lungs clear, airway intact, No chest tenderness, No respiratory distress Cardiovascular Exam: regular rate/rhythm, normal heart sounds, normal peripheral pulses Gastrointestinal/Abdomen Exam: soft, normal bowel sounds, No tenderness Rectal Exam: not done Back Exam: normal inspection, normal range of motion, No CVA tenderness, No vertebral tenderness Extremity Exam: normal inspection, normal range of motion, pelvis stable Neurologic Exam: alert, oriented x 3, cooperative, structures technician II-XII nml as tested, normal mood/affect, nml cerebellar function, nml station & gait, sensation nml, No motor deficits, No facial droop Skin Exam: normal color, warm, dry Lymphatic Exam: No adenopathy SpO2 Interpretation: normal O2 Delivery: Room Air - Course Nursing assessment & vital signs reviewed: Yes Ordered Tests: Active Orders 24 hr Category Date Time Status Metal Neutralizer STAT Care 12/05/23 10:16 Active EKG-ER Only STAT Care 12/05/23 10:15 Active IV Insertion STAT Care 12/05/23 10:15 Active NPO (ED) STAT Care 12/05/23 10:15 Active Pulse Oximetry (ED) STAT Care 12/05/23 10:15 Active HEAD WITHOUT CONTRAST [CT] Stat Exams 12/05/23 09:36 Completed CBC W DIFF Stat Lab 12/05/23 10:15 Completed CMP Stat Lab 12/05/23 10:15 Completed MAGNESIUM Stat Lab 12/05/23 10:15 Completed UA W/RFX UR CULTURE Stat Lab 12/05/23 11:39 Completed Medication Summary Discontinued Medications Generic Name Dose Route Start Last Admin Trade Name Freq PRN Reason Stop Dose Admin Clonidine 0.1 mg 12/05/23 13:09 Clonidine Hcl 0.1 Mg Tablet PO 12/05/23 13:10 STAT ONE Lab/Rad Data: Laboratory Result Diagrams 12/05/23 10:15 12/05/23 10:15 Laboratory Results 12/05/23 12/05/23 12/05/23 Range/Units 11:39 10:15 10:15 WBC 7.6 (4.23-9.07) x10^3/uL RBC 4.68 (4.63-6.08) x10^6/uL Hgb 14.3 (13.7-17.5) g/dL Hct 41.9 (40.1-51.0) % MCV 89.5 (79.0-92.2) fL MCH 30.6 (25.7-32.2) pg MCHC 34.1 (32.3-36.5) g/dL RDW 12.0 (11.6-14.4) % Plt Count 183 (163-337) x10^3/uL MPV 9.2 L (9.4-12.4) fL Gran % 74.6 H (34.0-67.9) % Immature Gran % (Auto) 0.3 (0.001-0.429) % Nucleat RBC Rel Count 0.0 (0.00-0.2) % Eos # (Auto) 0.14 (0.04-0.54) x10^3/uL Immature Gran # (Auto) 0.02 (0.001-0.031) x10^3u/L Absolute Lymphs (auto) 1.20 L (1.32-3.57) x10^3/uL Absolute Monos (auto) 0.52 (0.30-0.82) x10^3/uL Absolute Nucleated RBC 0.00 (0.00-0.012) x10^3u/L Lymphocytes % 15.9 L (21.8-53.1) % Monocytes % 6.9 (5.3-12.2) % Eosinophils % 1.8 (0.8-7.0) % Basophils % 0.5 (0.2-1.2) % Absolute Granulocytes 5.65 H (1.78-5.38) x10^3/uL Basophils # 0.04 (0.01-0.08) x10^3/uL Sodium 138 (135-145) mmol/L Potassium 4.2 (3.5-5.1) mmol/L Chloride 104 (98-107) mmol/L Carbon Dioxide 29 (22-30) mmol/L Anion Gap 9.2 (5-15) MEQ/L BUN 9 (9-20) mg/dL Creatinine 0.88 (0.66-1.25) mg/dL Estimated GFR 97.2 ML/MIN Glucose 104 (74-106) mg/dL Calcium 9.2 (8.4-10.2) mg/dL Magnesium 2.2 (1.6-2.3) mg/dL Total Bilirubin 0.40 (0.2-1.3) mg/dL AST 25 (17-59) U/L ALT 19 (0-50) U/L Alkaline Phosphatase 65 (38-126) U/L Serum Total Protein 6.9 (6.3-8.2) g/dL Albumin 3.9 (3.5-5.0) g/dL Urine Color Yellow (Yellow) Urine Appearance Clear (Clear) Urine pH 7.0 (4.6-8.0) Ur Specific [place] 1.020 (1.005-1.030) Urine Protein Negative (Negative) Urine Glucose (UA) Negative (Negative) mg/dL Urine Ketones Negative (Negative) Urine Blood Negative (Negative) Urine Nitrite Negative (Negative) Urine Bilirubin Negative (Negative) Urine Urobilinogen 1.0 A (0.2) mg/dL Ur Leukocyte Esterase Trace A (Negative) U Hyaline Cast (Auto) NONE SEEN (0-2) /LPF Urine Microscopic RBC 0-2 (0-5) /HPF Urine Microscopic WBC 0-2 (0-5) /HPF Ur Epithelial Cells Rare (None Seen) /HPF Urine Bacteria None Seen (None Seen) /HPF Urine Culture Reflexed NO (NO) - Progress Progress: unchanged Progress Note: 12/05/23 10:23 My medical decision making today and the workup performed is based on review of the patient's past medical history, review the patient's medication list, review of patient drug allergy list, history present illness and physical findings on examination. The workup in this patient includes placement of intravenous line, CBC, CMP, magnesium level, urinalysis, CT scan of the head without contrast. We will wait for few blood pressure readings to determine if the patient requires antihypertensive medicine. Differential diagnosis includes but is not limited to acute intracranial abnormality, hypertension, electrolyte abnormalities, urinary tract infection/dehydration 12/05/23 10:[address] scan of the head without contrast was interpreted by the radiologist and I reviewed the impression. The impression states extreme beam artifact limits the interpretation of the exam. The beam artifact is from the left cochlear implant device. No gross intracranial abnormalities. 12/05/23 13:[address] Lazo, our teleneurologist. He evaluated the patient. I provided him additional history physical findings and results of the workup. Dr. Lazo recommends starting a antihypertensive medication on him. He also recommends taking 1 baby aspirin a day. Dr. Lazo states that the workup in this patient can be continued as an outpatient. Counseled pt/family regarding: lab results, diagnosis, rad results Medical Desision Making - Independent Historian Additional History obtained from: Spouse - Diagnostic Testing Diagnostic test were ordered, analyzed, and reviewed by me: Yes Radiological Interpretation: Reviewed by me, Teleradiologist Report - Risk of complications The pt has a mod risk of morbidity or mortality based on: Need for prescription drug management - Departure Departure Disposition: Home Clinical Impression: Numbness, Hypertension Condition: Stable Critical Care Time: No Referrals: [facility] [Primary Care Provider] - Follow up/PCP as directed Additional Instructions: Take a baby aspirin every day (81 mg). Call your primary care provider today, 12/05/2023, and make arrangements for follow-up appointment to be seen in the next 3 to 5 days. Take your new blood pressure medication and your other medication as prescribed. Keep a morning noon and night daily log of your blood pressure readings for 3 days. Take these readings to your primary care provider for them to see what your blood pressure has been doing. Prescriptions: Hydrochlorothiazide 25 mg [hydroDIURIL 25 MG] 25 mg PO DAILY #10 tablet
[2023-12-05 09:43] VITALS: TEMP 97.5
--- NOTE | 2023-12-05 10:18 | XRAY ---
Indication: Intermittent double vision. Numbness right upper and right lower extremities. Multiple contiguous images obtained through the head without contrast. Comparison: None Left cochlear implant device produces extreme beam artifact markedly limiting exam. No acute intracranial hemorrhage, abnormal extra-axial fluid collection, or mass effect. Fourth ventricle is midline without hydrocephalus. Bony calvarium grossly intact. Visualized paranasal sinuses and mastoid air cells are clear. Impression: Extreme beam artifact from left cochlear implant device. No gross acute intracranial abnormalities.
[2023-12-05 10:32] LABS: Absolute Neutrophil Ct (ANC) 5.65 x10^3/uL (1.78-5.38); BASOPHIL % 0.5 % (0.2-1.2); Basophil (Absolute #) 0.04 x10^3/uL (0.01-0.08); Eosinophil % 1.8 % (0.8-7.0); Eosinophil (Absolute #) 0.14 x10^3/uL (0.04-0.54); Hematocrit 41.9 % (40.1-51.0); Hemoglobin 14.3 g/dL (13.7-17.5); IMMATURE GRAN # 0.02 x10^3u/L (0.001-0.031); IMMATURE GRAN % 0.3 % (0.001-0.429); Lymphocytes % 15.9 % (21.8-53.1); Mean Cell Volume 89.5 fL (79.0-92.2); Mean Corpuscular Hemoglobin 30.6 pg (25.7-32.2); Mean Corpuscular Hgb Concent. 34.1 g/dL (32.3-36.5); Mean Platelet Volume 9.2 fL (9.4-12.4); Monocyte (Absolute #) 0.52 x10^3/uL (0.30-0.82); Monocytes % 6.9 % (5.3-12.2); Neutrophil % 74.6 % (34.0-67.9); Platelet Count 183 x10^3/uL (163-337); Red Blood Count 4.68 x10^6/uL (4.63-6.08); White Blood Count 7.6 x10^3/uL (4.23-9.07)
[2023-12-05 10:49] LABS: ALBUMIN 3.9 g/dL (3.5-5.0); ANION GAP 9.2 MEQ/L (5-15); BILIRUBIN,TOTAL 0.4 mg/dL (0.2-1.3); Calcium 9.2 mg/dL (8.4-10.2); Creatinine 1 0.88 mg/dL (0.66-1.25); EST GLOMERULAR FILTRATION RATE 97.2 ML/MIN; MAGNESIUM 2.2 mg/dL (1.6-2.3); Potassium 4.2 mmol/L (3.5-5.1); Total Protein 6.9 g/dL (6.3-8.2)
[2023-12-05 11:54] LABS: Appearance Clear (Clear); Bacteria None Seen /HPF (None Seen); Bilirubin Negative (Negative); Blood Negative (Negative); Epithelial Cells Rare /HPF (None Seen); Glucose, Urine Negative (Negative); Hyaline Casts NONE SEEN /LPF (0-2); Ketones Negative (Negative); Leukocyte Esterase Trace (Negative); Nitrite Negative (Negative); Protein,Urine Dip Negative (Negative); RBC 0-2 /HPF (0-5); WBC 0-2 /HPF (0-5)
[2023-12-05 11:56] LABS: ADD URINE CULTURE? NO (NO)
[2023-12-05 13:07] VITALS: O2SAT 98
[2023-12-05] MEDS ORDERED: CLONIDINE 0.1 MG TABLET ONE (13:11)
[2023-12-05] MEDS: CLONIDINE 0.1 MG TABLET PO ONE (13:12)
[2023-12-05 13:54] VITALS: BP 161/92; PULSE 56; RESP 14
== END 2023-12-05 13:55 | disposition home or self-care (01) ==
LOC: ED 09:23
DX: R20.0 Anesthesia of skin (principal); I10 Essential (primary) hypertension; Z79.899 Other long term (current) drug therapy; Z72.0 Tobacco use
CPT/HCPCS: 36415; 70450; 80053; 81001; 83735; 85025; 93005; 93041; 94760; 99284; A9270-GY

== ENCOUNTER 2024-07-28 11:39 | Emergency (ER) | payer OTHER ==
[2024-07-28 11:54] VITALS: TEMP 98.4
--- NOTE | 2024-07-28 12:17 | ERPHSYRPT ---
- History of Present Illness Time Seen by Provider: 07/28/24 12:12 Source: patient Exam Limitations: no limitations Patient Subjective Stated Complaint: pt c/o of headache, dizziness, left arm and leg numbness, [facility] but he d oesn't take them because his thinks she can treat it naturally Triage Nursing Assessment: Pt brought self to the ER, hypertensive, rates chest pain as 2/10, pulses normal, skin n/w/d, no difficulty breathing, walked into the ER without assistance, very emotional, doesn't appear to be in any distress Physician History: pt c/o of headache, dizziness, left arm and leg numbness, [facility] needed [facility] be [facility] meds but he doesn't take them because his thinks she can treat it naturally 64-year-old male with significant past medical history of peripheral neuropathy having an off-and-on problem with blood pressure. Recently was diagnosed with high blood pressure but opted to treat it with diet and exercise and with some natural products but he continues to started having more and more headache with numbness on his left arm so he came to the emergency room where his blood pressure was 220/110. He was denying any deficits but he was complaining of numbness in his left arm he denies any speech difficulty talking difficulty any heavy pressure type of chest pain nausea vomiting dizziness. He is complaining of headache all over the head. He denies any visual disturbance. Timing/Duration: day(s) Activities at Onset: none Nitro Today/Relief: no nitro taken today Aspirin Treatment Today: no aspirin today Associated Symptoms: headaches, weakness, other (numbness in left arm and leg) Allergies/Adverse Reactions: No Known Drug Allergies Allergy (Verified 07/28/24 11:54) Home Medications: Carbamazepine 200 mg [Tegretol 200 MG] 200 mg PO TID 09/28/19 [History] Gabapentin 300 mg PO TID 09/28/19 [History] Hx Tetanus, Diphtheria Vaccination/Date Given: No Hx Influenza Vaccination/Date Given: No Hx Pneumococcal Vaccination/Date Given: No Travel Risk - International Travel Have you traveled outside of the country in past 3 weeks: No - Emerging Infectious Disease Are you exhibiting symptoms associated with any current EIDs: No - Review of Systems Constitutional: No Fever, No Chills Eyes: No Symptoms Ears, Nose, & Throat: No Symptoms Respiratory: No Cough, No Dyspnea Cardiac: No Chest Pain, No Edema, No Syncope Abdominal/Gastrointestinal: No Abdominal Pain, No Nausea, No Vomiting, No Diarrhea Genitourinary Symptoms: No Dysuria Musculoskeletal: No Back Pain, No Neck Pain Skin: No Rash Neurological: Focal Weakness (left arm, left leg), Headache, Parasthesia, No Dizziness, No Sensory Changes, No Speech Changes Psychological: No Symptoms Endocrine: No Symptoms Hematologic/Lymphatic: No Symptoms Immunological/Allergic: No Symptoms All Other Systems: Reviewed and Negative - Past Medical History Pertinent Past Medical History: Yes Neurological History: Peripheral Neuropathy ENT History: No Pertinent History Cardiac History: No Pertinent History Respiratory History: No Pertinent History Endocrine Medical History: No Pertinent History Musculoskeletal History: No Pertinent History GI Medical History: No Pertinent History History: No Pertinent History Psycho-Social History: No Pertinent History Male Reproductive Disorders: No Pertinent History - Past Surgical History Past Surgical History: Yes Neuro Surgical History: Neurological Surgery Cardiac: No Pertinent History Respiratory: No Pertinent History Gastrointestinal: Appendectomy, Hernia Repair Genitourinary: No Pertinent History Musculoskeletal: No Pertinent History Male Surgical History: No Pertinent History Other Surgical History: cochlear implant, 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 - Social History Smoking Status: Current every day smoker How long have you smoked: YEARS Exposure to second hand smoke: Yes Drug Use: marijuana - Social Determinants of Health Will the patient participate in the screening: Yes Do you worry about a steady place to live?: No Do you have any problems with any of the following?: No known problems In the past 12 months,have you had to go without utilities?: No Transportation Issues: No Has anyone in your support network made you feel unsafe?: No Have you or anyone in your house had to go w/o enough food: No - Nursing Vital Signs Nursing Vital Signs: Initial Vital Signs Temperature 98.4 F 07/28/24 11:44 Pulse Rate 71 07/28/24 11:44 Respiratory Rate 18 07/28/24 11:44 Blood Pressure 206/120 07/28/24 11:44 O2 Sat by Pulse Oximetry 99 07/28/24 11:44 Pain Scale Pain Intensity 2 - Physical Exam General Appearance: no apparent distress, alert Eye Exam: PERRL/EOMI, eyes nml inspection Ears, Nose, Throat Exam: normal ENT inspection, moist mucous membranes Neck Exam: normal inspection, non-tender, supple Respiratory Exam: normal breath sounds, lungs clear, No respiratory distress Cardiovascular Exam: regular rate/rhythm, normal heart sounds, No edema Gastrointestinal/Abdomen Exam: soft, No tenderness, No mass Back Exam: normal inspection, No CVA tenderness, No vertebral tenderness Extremity Exam: normal inspection, normal range of motion Neurologic Exam: alert, oriented x 3, cooperative, normal mood/affect, nml cerebellar function, sensation nml, sensory deficit, No motor deficits, No disoriented, No confusion, No motor weakness, No facial droop, No slurred speech, No aphasia, No dysarthria Skin Exam: normal color, warm, dry Lymphatic Exam: No adenopathy SpO2: 99 - Course Nursing assessment & vital signs reviewed: Yes EKG Interpreted by Me: Sinus Rhythm, Non-specific ST Changes - Radiology Exams Chest X-ray Interpretation: Interpreted by me, Reviewed by me - CT Exams Head CT Interpretation: Tele-radiologist Report Ordered Tests: Active Orders 24 hr Category Date Time Status EKG-ER Only STAT Care 07/28/24 12:06 Active IV Insertion STAT Care 07/28/24 12:03 Active IV Insertion-2nd Peripheral STAT Care 07/28/24 12:03 Active NPO (ED) STAT Care 07/28/24 12:03 Active CHEST 1 VIEW (PORTABLE) Stat Exams 07/28/24 12:06 Taken HEAD WITHOUT CONTRAST [CT] Stat Exams 07/28/24 12:03 Completed CBC W DIFF Stat Lab 07/28/24 12:16 Completed CMP Stat Lab 07/28/24 12:16 Completed NT PRO BNPII Stat Lab 07/28/24 12:16 Completed TROPONIN Q4H Lab 07/28/24 12:16 Completed TROPONIN Q4H Lab 07/28/24 16:15 Ordered TROPONIN Q4H Lab 07/28/24 20:15 Ordered Medication Summary Generic Name Dose Route Start Last Admin Trade Name Freq PRN Reason Stop Dose Admin Sodium Chloride 1,000 mls @ 100 mls/hr 07/28/24 12:15 07/28/24 12:40 Sodium Chloride 0.9% 1000 Ml IV 08/27/24 12:14 100 mls/hr .Q10H ABDIAS Administration Discontinued Medications Generic Name Dose Route Start Last Admin Trade Name Freq PRN Reason Stop Dose Admin Hydralazine HCl 20 mg 07/28/24 12:03 07/28/24 12:22 Hydralazine Hcl 20 Mg/Ml Vial IV 07/28/24 12:04 20 mg STAT ONE Administration Hydralazine HCl Confirm 07/28/24 12:21 Hydralazine Hcl 20 Mg/Ml Vial Administered 07/28/24 12:22 Dose 20 mg .ROUTE .STK-MED ONE Lab/Rad Data: Laboratory Result Diagrams 07/28/24 12:16 07/28/24 12:16 Laboratory Results 07/28/24 07/28/24 07/28/24 Range/Units 12:16 12:16 12:16 WBC 7.3 (4.23-9.07) x10^3/uL RBC 4.60 L (4.63-6.08) x10^6/uL Hgb 14.4 (13.7-17.5) g/dL Hct 39.3 L (40.1-51.0) % MCV 85.4 (79.0-92.2) fL MCH 31.3 (25.7-32.2) pg MCHC 36.6 H (32.3-36.5) g/dL RDW 11.9 (11.6-14.4) % Plt Count 218 (163-337) x10^3/uL MPV 9.1 L (9.4-12.4) fL Gran % 71.9 H (34.0-67.9) % Immature Gran % (Auto) 0.4 (0.001-0.429) % Nucleat RBC Rel Count 0.0 (0.00-0.2) % Eos # (Auto) 0.15 (0.04-0.54) x10^3/uL Immature Gran # (Auto) 0.03 (0.001-0.031) x10^3u/L Absolute Lymphs (auto) 1.23 L (1.32-3.57) x10^3/uL Absolute Monos (auto) 0.62 (0.30-0.82) x10^3/uL Absolute Nucleated RBC 0.00 (0.00-0.012) x10^3u/L Lymphocytes % 16.8 L (21.8-53.1) % Monocytes % 8.4 (5.3-12.2) % Eosinophils % 2.0 (0.8-7.0) % Basophils % 0.5 (0.2-1.2) % Absolute Granulocytes 5.27 (1.78-5.38) x10^3/uL Basophils # 0.04 (0.01-0.08) x10^3/uL Sodium 130 L (135-145) mmol/L Potassium 4.3 (3.5-5.1) mmol/L Chloride 98 (98-107) mmol/L Carbon Dioxide 23 (22-30) mmol/L Anion Gap 12.8 (5-15) MEQ/L BUN 5 L (9-20) mg/dL Creatinine 0.67 (0.66-1.25) mg/dL Estimated GFR 104.9 ML/MIN Glucose 105 (74-106) mg/dL Calcium 8.9 (8.4-10.2) mg/dL Total Bilirubin 0.60 (0.2-1.3) mg/dL AST 33 (17-59) U/L ALT 22 (0-50) U/L Alkaline Phosphatase 74 (38-126) U/L Troponin I < 0.012 (0.000-0.033) ng/mL NT-Pro-B Natriuret Pep 126 (<300) pg/mL Serum Total Protein 6.9 (6.3-8.2) g/dL Albumin 4.3 (3.5-5.0) g/dL LINICAL HISTORY: numbness on face COMPARISON: None. TECHNIQUE: Axial non-contrast CT scan of the brain was performed from the skull base to the high parietal region. One of the following dose reduction techniques were utilized for this exam: Automated exposure control, adjustment of the mA and/or kV according to patient size, use of iterative reconstruction. FINDINGS: Brain Parenchyma: Age-related atrophic changes with mild periventricular chronic microvascular ischemic changes. 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 Normal attenuation of the cerebral hemispheres, cerebellum, and brainstem. No evidence of acute infarct, hemorrhage, or mass effect. No abnormal areas of hypo- or hyperattenuation. Ventricular System: Ventricles are enlarged in size with preserved configuration. No evidence of hydrocephalus. Subarachnoid Spaces: PatientID: [id number] Patient Name: ADIS WADE Exam Date: 07/28/2024 Procedure: HEAD WITHOUT CONTRAST page 1 of 2 Dilated sulci and cisterns. No evidence of subarachnoid hemorrhage or extra-axial fluid collections. Cerebellum and Brainstem: Normal size and signal. No masses, lesions, or areas of abnormal signal. Orbits: Normal appearance of the globes, optic nerves, and extraocular muscles. No evidence of orbital masses. Sinuses: Clear paranasal sinuses. No evidence of sinusitis or mucosal thickening. Mastoid Air Cells: Clear mastoid air cells. No evidence of mastoiditis. Skull: Normal skull morphology. Left subcutaneous tissue cochlea implant noted, causing metallic artifact on adjacent parenchyma. IMPRESSION: 1. 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 further evaluation with MRI is advised. 2. Age-related atrophy with chronic microvascular ischemic changes. - Progress Progress: improved Air Movement: good Blood Culture(s) Obtained: No Antibiotics given: No Counseled pt/family regarding: lab results, diagnosis, need for follow-up, rad results Medical Desision Making - Independent Historian Additional History obtained from: Spouse, Family - Diagnostic Testing Diagnostic test were ordered, analyzed, and reviewed by me: Yes Radiological Interpretation: Interpreted by me, Reviewed by me, Teleradiologist Report - Risk of complications The pt has a mod risk of morbidity or mortality based on: Need for prescription drug management - Departure Departure Disposition: Home Clinical Impression: Hypertensive emergency, Abnormal CT of brain Condition: Stable Critical Care Time: No Referrals: [facility]OSPITAL,'S [Primary Care Provider] - Follow up with PCP 5 days Instructions: High blood pressure emergencies Additional Instructions: Discharge/Care Plan ADIS WADE was seen on 07/28/24 in the Emergency Room. The patient was counseled regarding Diagnosis,Lab results, Imaging studies, need for follow up and when to return to the Emergency Room. Prescriptions given: Discharge Note I have spoken with the patient and/or caregivers. I have explained the patient's condition, diagnosis and treatment plan based on the information available to me at this time. I have answered the patient's and/or caregiver's questions and addressed any concerns. The patient and/or caregivers have as good understanding of the patient's diagnosis, condition and treatment plan as can be expected at this point. The vital signs have been stable. The patient's condition is stable and appropriate for discharge from the emergency department. The patient will pursue further outpatient evaluation with the primary care physician or other designated or consulting physician as outlined in the discharge instructions. The patient and/or caregivers are agreeable to this plan of care and follow-up instructions have been explained in detail. The patient and/or caregivers have received these instruction. The patient/and or caregivers are aware that any significant change in condition or worsening of symptoms s hould prompt an immediate return to this or the closest emergency department or call 911. MAUROADIS ORANTES was seen on 07/28/24 n the Emergency Room. At that time you were treated for an emergent condition, during your visit Laboratory, Radiology and/or other procedures may have been ordered. It is very important that you follow-up with your Primary Care Physician [facility] within the next 24-48 hours to review your Emergency Room visit and the final results of testing that was ordered. Some test results such as Urine Cultures, Blood Cultures, and other cultures if ordered will not be finalized for 24-48 hours. If you do not have a Primary Care Provider please call the medical records department at [phone] ext [phone] to obtain a copy of your results or you may sign into our patient portal to obtain these results by visiting us @ [email or web address] and completing the following steps: 1. Click on the Patient Portal link 2. Click the Patient Self Enrollment Link to complete the enrollment form and entering your 3. Once the enrollment form is completed you will receive an email with a temporary ID and password at the email address you provided. 4. Next choose a user name and password. Your user name must be at least 4 characters long and your password must be at least 4 characters long. 5. Choose a security question from the list and provide your answer to the question. If you already have signed into the Health Portal you may access your Health Care Information 20/12 by the following steps: 1. Login to our website @ [email or web address] 2. Enter your original user name and password. FAQS The [facility] Health Portal is an online tool that contains your Lab Results, Radiology Reports, Visit History, Discharge Instructions and Health Summary Lab and Radiology Results will not be available for 72 hours on the portal. The Portal is a secure site, passwords are encryted and URLs are re-written so they cannot be copied and pasted. You and authorized family members are the only ones who can access your Portal. Also there is a timeout feature that protects your information if you leave the Portal page open. If you have technical difficulty please use the Contact Us link on the page this will allow you to submit any questions you have regarding the Portal or you may contact the Medical Record Department at [phone] ext [phone]. Prescriptions: Lisinopril/Hydrochlorothiazide [Lisinopril-Hctz 20-12.5 mg Tab] 1 each PO QAM #30 tablet Amlodipine Besylate 5 mg [Norvasc 5 mg] 5 mg PO QHS 30 Days #30 tablet
[2024-07-28 12:18] LABS: Absolute Neutrophil Ct (ANC) 5.27 x10^3/uL (1.78-5.38); BASOPHIL % 0.5 % (0.2-1.2); Basophil (Absolute #) 0.04 x10^3/uL (0.01-0.08); Eosinophil (Absolute #) 0.15 x10^3/uL (0.04-0.54); Hematocrit 39.3 % (40.1-51.0); Hemoglobin 14.4 g/dL (13.7-17.5); IMMATURE GRAN # 0.03 x10^3u/L (0.001-0.031); IMMATURE GRAN % 0.4 % (0.001-0.429); Lymphocyte (Absolute #) 1.23 x10^3/uL (1.32-3.57); Lymphocytes % 16.8 % (21.8-53.1); Mean Cell Volume 85.4 fL (79.0-92.2); Mean Corpuscular Hemoglobin 31.3 pg (25.7-32.2); Mean Corpuscular Hgb Concent. 36.6 g/dL (32.3-36.5); Mean Platelet Volume 9.1 fL (9.4-12.4); Monocyte (Absolute #) 0.62 x10^3/uL (0.30-0.82); Monocytes % 8.4 % (5.3-12.2); Neutrophil % 71.9 % (34.0-67.9); Platelet Count 218 x10^3/uL (163-337); Red Cell Distribution Width 11.9 % (11.6-14.4); White Blood Count 7.3 x10^3/uL (4.23-9.07)
[2024-07-28] MEDS ORDERED: APRESOLINE 20 MG/ML INJ ONE (12:21)
[2024-07-28] MEDS: APRESOLINE 20 MG/ML INJ IV ONE (12:22)
[2024-07-28] MEDS ORDERED: Sodium Chloride 0.9% 1000 ML 1,000 ML ONE (12:38)
[2024-07-28] MEDS: Sodium Chloride 0.9% 1000 ML 1,000 ML IV SCH (12:40)
[2024-07-28 12:43] LABS: ALBUMIN 4.3 g/dL (3.5-5.0); ANION GAP 12.8 MEQ/L (5-15); BILIRUBIN,TOTAL 0.6 mg/dL (0.2-1.3); Calcium 8.9 mg/dL (8.4-10.2); Creatinine 1 0.67 mg/dL (0.66-1.25); EST GLOMERULAR FILTRATION RATE 104.9 ML/MIN; Potassium 4.3 mmol/L (3.5-5.1); Total Protein 6.9 g/dL (6.3-8.2)
--- NOTE | 2024-07-28 13:17 | XRAY ---
CLINICAL HISTORY: numbness on face COMPARISON: None. TECHNIQUE: Axial non-contrast CT scan of the brain was performed from the skull base to the high parietal region. One of the following dose reduction techniques were utilized for this exam: Automated exposure control, adjustment of the mA and/or kV according to patient size, use of iterative reconstruction. FINDINGS: Brain Parenchyma: Age-related atrophic changes with mild periventricular chronic microvascular ischemic changes. 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 Normal attenuation of the cerebral hemispheres, cerebellum, and brainstem. No evidence of acute infarct, hemorrhage, or mass effect. No abnormal areas of hypo- or hyperattenuation. Ventricular System: Ventricles are enlarged in size with preserved configuration. No evidence of hydrocephalus. Subarachnoid Spaces: Dilated sulci and cisterns. No evidence of subarachnoid hemorrhage or extra-axial fluid collections. Cerebellum and Brainstem: Normal size and signal. No masses, lesions, or areas of abnormal signal. Orbits: Normal appearance of the globes, optic nerves, and extraocular muscles. No evidence of orbital masses. Sinuses: Clear paranasal sinuses. No evidence of sinusitis or mucosal thickening. Mastoid Air Cells: Clear mastoid air cells. No evidence of mastoiditis. Skull: Normal skull morphology. Left subcutaneous tissue cochlea implant noted, causing metallic artifact on adjacent parenchyma. IMPRESSION: 1. 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 2. Age-related atrophy with chronic microvascular ischemic changes. Electronically Signed by: Juhi Silverman MD. (07/28/2024 13:13:54 EST) ADDENDUM: 07/28/2024 13:17:23 EST [facility] ER was called at [phone] at 12:11 PM [employer], 07/28/2024, and Julianna, a Nurse, was informed regarding the stroke results. Electronically Signed by: Juhi Silverman MD. (07/28/2024 13:17:23 EST)
[2024-07-28 13:37] VITALS: RESP 18
[2024-07-28 14:37] VITALS: BP 176/96; PULSE 76; O2SAT 96
--- NOTE | 2024-07-28 20:32 | XRAY ---
Indication: High blood pressure. Comparison: None Portable chest hyperinflated and clear. Heart not enlarged with tortuous descending aorta. Bony thorax intact with osteopenia and minimal degenerative changes. Impression: Nonacute chest with chronic features.
== END 2024-07-28 14:35 | disposition home or self-care (01) ==
LOC: ED 11:39
DX: I16.1 Hypertensive emergency (principal); I10 Essential (primary) hypertension; R90.89 Other abnormal findings on diagnostic imaging of central nervous system; R51.9 Headache, unspecified; R42 Dizziness and giddiness; R20.2 Paresthesia of skin; Z79.899 Other long term (current) drug therapy; Z72.0 Tobacco use
CPT/HCPCS: 36415; 70450; 71045; 80053; 83880; 84484; 85025; 93005; 96374; 99284; 99285; J0360

== ENCOUNTER 2024-07-29 13:09 | Emergency (ER) | payer OTHER ==
[2024-07-29 13:31] VITALS: TEMP 97.7
--- NOTE | 2024-07-29 13:39 | ERPHSYRPT ---
- History of Present Illness Time Seen by Provider: 07/29/24 13:39 Source: patient Exam Limitations: no limitations Patient Subjective Stated Complaint: pt here for feeling flushed today, pt was here yesterday and was placed on b/p meds, he did take hes meds today Triage Nursing Assessment: pt is alert, walked in, resp easy, skin w/d/p. abd soft, moves all ext well, no cough, Allergies/Adverse Reactions: No Known Drug Allergies Allergy (Verified 07/29/24 13:23) Home Medications: Carbamazepine 200 mg [Tegretol 200 MG] 200 mg PO TID 09/28/19 [History] Gabapentin 300 mg PO TID 09/28/19 [History] Hx Tetanus, Diphtheria Vaccination/Date Given: No Hx Influenza Vaccination/Date Given: No Hx Pneumococcal Vaccination/Date Given: No Immunizations Up to Date: Yes Travel Risk - International Travel Have you traveled outside of the country in past 3 weeks: No - Emerging Infectious Disease Are you exhibiting symptoms associated with any current EIDs: No - Past Medical History Pertinent Past Medical History: Yes Neurological History: Peripheral Neuropathy ENT History: No Pertinent History Cardiac History: No Pertinent History Respiratory History: No Pertinent History Endocrine Medical History: No Pertinent History Musculoskeletal History: No Pertinent History GI Medical History: No Pertinent History History: No Pertinent History Psycho-Social History: No Pertinent History Male Reproductive Disorders: No Pertinent History - Past Surgical History Past Surgical History: Yes Neuro Surgical History: Neurological Surgery Cardiac: No Pertinent History Respiratory: No Pertinent History Gastrointestinal: Appendectomy, Hernia Repair Genitourinary: No Pertinent History Musculoskeletal: No Pertinent History Male Surgical History: No Pertinent History Other Surgical History: cochlear implant, 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 - Social History Smoking Status: Current every day smoker How long have you smoked: YEARS Exposure to second hand smoke: Yes Drug Use: marijuana - Social Determinants of Health Will the patient participate in the screening: Yes Do you worry about a steady place to live?: No Do you have any problems with any of the following?: No known problems In the past 12 months,have you had to go without utilities?: No Transportation Issues: No Has anyone in your support network made you feel unsafe?: No Have you or anyone in your house had to go w/o enough food: No - Nursing Vital Signs Nursing Vital Signs: Initial Vital Signs Temperature 97.7 F 07/29/24 13:30 Pulse Rate 82 07/29/24 13:30 Respiratory Rate 18 07/29/24 13:30 Blood Pressure 166/113 07/29/24 13:30 O2 Sat by Pulse Oximetry 96 07/29/24 13:30 Pain Scale Pain Intensity 3 - Physical Exam SpO2: 96 Ordered Tests: Active Orders 24 hr Category Date Time Status CBC W DIFF Stat Lab 07/29/24 13:55 Completed CMP Stat Lab 07/29/24 13:55 Completed TROPONIN Q4H Lab 07/29/24 13:55 Completed TROPONIN Q4H Lab 07/29/24 17:45 Ordered TROPONIN Q4H Lab 07/29/24 21:45 Ordered TSH, 3RD Generation Stat Lab 07/29/24 13:55 Completed Medication Summary Discontinued Medications Generic Name Dose Route Start Last Admin Trade Name Freq PRN Reason Stop Dose Admin Hydralazine HCl 20 mg 07/29/24 14:56 07/29/24 15:05 Hydralazine Hcl 20 Mg/Ml Vial IV 07/29/24 14:57 Not Given STAT ONE Hydralazine HCl Confirm 07/29/24 14:58 Hydralazine Hcl 20 Mg/Ml Vial Administered 07/29/24 14:59 Dose 20 mg .ROUTE .STK-MED ONE Hydralazine HCl 25 mg 07/29/24 15:05 07/29/24 15:22 Hydralazine Hcl 25 Mg Tablet PO 07/29/24 15:06 25 mg STAT ONE Administration Hydralazine HCl 25 mg 07/29/24 16:00 07/29/24 16:06 Hydralazine Hcl 25 Mg Tablet PO 07/29/24 16:01 25 mg STAT ONE Administration Lab/Rad Data: Laboratory Result Diagrams 07/29/24 13:55 07/29/24 13:55 Laboratory Results 07/29/24 07/29/24 07/29/24 Range/Units 13:55 13:55 13:55 WBC (4.23-9.07) x10^3/uL RBC (4.63-6.08) x10^6/uL Hgb (13.7-17.5) g/dL Hct (40.1-51.0) % MCV (79.0-92.2) fL MCH (25.7-32.2) pg MCHC (32.3-36.5) g/dL RDW (11.6-14.4) % Plt Count (163-337) x10^3/uL MPV (9.4-12.4) fL Gran % (34.0-67.9) % Immature Gran % (Auto) (0.001-0.429) % Nucleat RBC Rel Count (0.00-0.2) % Eos # (Auto) (0.04-0.54) x10^3/uL Immature Gran # (Auto) (0.001-0.031) x10^3u/L Absolute Lymphs (auto) (1.32-3.57) x10^3/uL Absolute Monos (auto) (0.30-0.82) x10^3/uL Absolute Nucleated RBC (0.00-0.012) x10^3u/L Lymphocytes % (21.8-53.1) % Monocytes % (5.3-12.2) % Eosinophils % (0.8-7.0) % Basophils % (0.2-1.2) % Absolute Granulocytes (1.78-5.38) x10^3/uL Basophils # (0.01-0.08) x10^3/uL Sodium 128 L (135-145) mmol/L Potassium 3.9 (3.5-5.1) mmol/L Chloride 95 L (98-107) mmol/L Carbon Dioxide 21 L (22-30) mmol/L Anion Gap 16.2 H (5-15) MEQ/L BUN 6 L (9-20) mg/dL Creatinine 0.69 (0.66-1.25) mg/dL Estimated GFR 104.0 ML/MIN Glucose 109 H (74-106) mg/dL Calcium 9.2 (8.4-10.2) mg/dL Total Bilirubin 0.60 (0.2-1.3) mg/dL AST 36 (17-59) U/L ALT 23 (0-50) U/L Alkaline Phosphatase 79 (38-126) U/L Troponin I < 0.012 (0.000-0.033) ng/mL Serum Total Protein 7.7 (6.3-8.2) g/dL Albumin 4.8 (3.5-5.0) g/dL Free T4 1.08 (0.78-2.19) ng/dL TSH 3rd Generation 0.843 (0.470-4.680) mIU/L 07/29/24 Range/Units 13:55 WBC 9.5 H (4.23-9.07) x10^3/uL RBC 4.95 (4.63-6.08) x10^6/uL Hgb 15.3 (13.7-17.5) g/dL Hct 43.0 (40.1-51.0) % MCV 86.9 (79.0-92.2) fL MCH 30.9 (25.7-32.2) pg MCHC 35.6 (32.3-36.5) g/dL RDW 11.9 (11.6-14.4) % Plt Count 221 (163-337) x10^3/uL MPV 8.8 L (9.4-12.4) fL Gran % 81.2 H (34.0-67.9) % Immature Gran % (Auto) 0.3 (0.001-0.429) % Nucleat RBC Rel Count 0.0 (0.00-0.2) % Eos # (Auto) 0.05 (0.04-0.54) x10^3/uL Immature Gran # (Auto) 0.03 (0.001-0.031) x10^3u/L Absolute Lymphs (auto) 1.06 L (1.32-3.57) x10^3/uL Absolute Monos (auto) 0.63 (0.30-0.82) x10^3/uL Absolute Nucleated RBC 0.00 (0.00-0.012) x10^3u/L Lymphocytes % 11.1 L (21.8-53.1) % Monocytes % 6.6 (5.3-12.2) % Eosinophils % 0.5 L (0.8-7.0) % Basophils % 0.3 (0.2-1.2) % Absolute Granulocytes 7.72 H (1.78-5.38) x10^3/uL Basophils # 0.03 (0.01-0.08) x10^3/uL Sodium (135-145) mmol/L Potassium (3.5-5.1) mmol/L Chloride (98-107) mmol/L Carbon Dioxide (22-30) mmol/L Anion Gap (5-15) MEQ/L BUN (9-20) mg/dL Creatinine (0.66-1.25) mg/dL Estimated GFR ML/MIN Glucose (74-106) mg/dL Calcium (8.4-10.2) mg/dL Total Bilirubin (0.2-1.3) mg/dL AST (17-59) U/L ALT (0-50) U/L Alkaline Phosphatase (38-126) U/L Troponin I (0.000-0.033) ng/mL Serum Total Protein (6.3-8.2) g/dL Albumin (3.5-5.0) g/dL Free T4 (0.78-2.19) ng/dL TSH 3rd Generation (0.470-4.680) mIU/L - Departure Departure Disposition: Home Clinical Impression: Hypertensive urgency Condition: Good Critical Care Time: No Referrals: [facility] [Primary Care Provider] - Follow up/PCP as directed Instructions: Malignant Hypertension (DC)
[2024-07-29 13:59] LABS: Absolute Neutrophil Ct (ANC) 7.72 x10^3/uL (1.78-5.38); BASOPHIL % 0.3 % (0.2-1.2); Basophil (Absolute #) 0.03 x10^3/uL (0.01-0.08); Eosinophil % 0.5 % (0.8-7.0); Eosinophil (Absolute #) 0.05 x10^3/uL (0.04-0.54); Hemoglobin 15.3 g/dL (13.7-17.5); IMMATURE GRAN # 0.03 x10^3u/L (0.001-0.031); IMMATURE GRAN % 0.3 % (0.001-0.429); Lymphocyte (Absolute #) 1.06 x10^3/uL (1.32-3.57); Lymphocytes % 11.1 % (21.8-53.1); Mean Cell Volume 86.9 fL (79.0-92.2); Mean Corpuscular Hemoglobin 30.9 pg (25.7-32.2); Mean Corpuscular Hgb Concent. 35.6 g/dL (32.3-36.5); Mean Platelet Volume 8.8 fL (9.4-12.4); Monocyte (Absolute #) 0.63 x10^3/uL (0.30-0.82); Monocytes % 6.6 % (5.3-12.2); Neutrophil % 81.2 % (34.0-67.9); Platelet Count 221 x10^3/uL (163-337); Red Blood Count 4.95 x10^6/uL (4.63-6.08); Red Cell Distribution Width 11.9 % (11.6-14.4); White Blood Count 9.5 x10^3/uL (4.23-9.07)
[2024-07-29 14:45] LABS: ALBUMIN 4.8 g/dL (3.5-5.0); ANION GAP 16.2 MEQ/L (5-15); BILIRUBIN,TOTAL 0.6 mg/dL (0.2-1.3); Calcium 9.2 mg/dL (8.4-10.2); Creatinine 1 0.69 mg/dL (0.66-1.25); Potassium 3.9 mmol/L (3.5-5.1); TSH, 3RD Generation 0.843 mIU/L (0.470-4.680); Total Protein 7.7 g/dL (6.3-8.2)
[2024-07-29] MEDS ORDERED: APRESOLINE 20 MG/ML INJ ONE (14:58)
[2024-07-29] MEDS: APRESOLINE 20 MG/ML INJ IV ONE (15:05)
[2024-07-29] MEDS: Apresoline 25 MG TABLET PO ONE ×2 (15:22→16:06)
[2024-07-29 16:33] VITALS: BP 169/116; PULSE 84; RESP 13
[2024-07-29 16:38] VITALS: O2SAT 96
== END 2024-07-29 17:01 | disposition home or self-care (01) ==
LOC: ED 13:09
DX: I16.0 Hypertensive urgency (principal); I10 Essential (primary) hypertension; Z79.899 Other long term (current) drug therapy; Z72.0 Tobacco use
CPT/HCPCS: 36415; 80053; 84439; 84443; 84484; 85025; 99283; J0360; A9270-GY